=== PATIENT | male | born 1955 | race Caucasian/White ===

== ENCOUNTER → 2019-05-27 12:19 | Outpatient (CLI) | payer OTHER, SELFPAY ==
--- NOTE | 2019-05-27 | DI.MRI.S_ITS ---
PROCEDURE: MR THORACIC SPINE WO/W CON INDICATIONS: Syringomyelia TECHNIQUE: Noncontrast sagittal T1 spin echo and T2 fast spin echo, sagittal STIR, axial T1 and T2 fast spin echo through the thoracic spine. After the administration of contrast, axial and sagittal T1 spin echo with fat saturation through the thoracic spine. COMPARISON: [facility], MR, C-SPINE WITH&WITHOUT CONTRAST, 09/01/2011, 12:21. [facility], MR, T-SPINE WITH AND WITHOUT CONTR, 10/14/2008, 18:28. FINDINGS: Image quality: Excellent. Alignment and curvature: There is normal bony alignment. Marrow: Marrow is of normal overall signal. There is mild chronic T12 vertebral body compression fracture, unchanged from 10/14/2008. Spinal cord: Visualized spinal cord is of normal caliber, without abnormal enhancement. There is mild central canal dilation in the thoracic cord at level from top ofT5 to the bottom of T7, and again at the level T9-T10, approximally 1-2 mm in diameter. Compared with the last exam on 10/14/2008, there is no significant change. More promounce Lower cervical cord central canal dilation measures up to 4 mm in diameter, which is better visualized on the MRI of the cervical spine. Paraspinous soft tissues: No paravertebral masses or abnormal enhancement. Dependent atelectasis at lung bases. Miscellaneous: There is mild degenerative disc disease at T6 And T7, T7-T8, T8-T9, T9-T10, T12-L1 and L1-L2. Central canal and foramina appear widely patent at all scanned levels. IMPRESSION: 1. Mild syrinx in the thoracic cord as described, unchanged. No intramedullary mass or abnormal enhancement in the thoracic cord. 2. Mild degenerative disc disease in thoracic spine. No central canal or foraminal stenosis. 3. Mild chronic compression fracture of T12, unchanged. Dictated by: Gustavo Valiente M.D. on 05/27/2019 at 16:00 Approved by: Gustavo Valiente M.D. on 05/27/2019 at 18:04
--- NOTE | 2019-05-27 | DI.MRI.S_ITS ---
PROCEDURE: MR CERVICAL SPINE WO/W CON INDICATIONS: Syringomyelia TECHNIQUE: Noncontrast sagittal T1 spin echo and T2 fast spin echo, sagittal STIR, foraminal oblique sagittal T2 fast spin echo, axial gradient echo or T2 fast spin echo through the cervical spine. After the administration of contrast, axial and sagittal T1 spin echo with fat saturation through the cervical spine. COMPARISON: [facility], MR, C-SPINE WITH&WITHOUT CONTRAST, 10/14/2008, 18:06. [facility], MR, C-SPINE WITH&WITHOUT CONTRAST, 09/01/2011, 12:21. FINDINGS: Image quality: Excellent. Alignment and curvature: There is normal bony alignment. Marrow: Marrow is normal in overall signal, without suspicious enhancement. Spinal cord: There is focal dilation of the central canal and spinal cord at the level of C6 and C7, which is unchanged. There is no mass or abnormal enhancement. Visualized spinal cord has normal size and signal. No cerebellar tonsillar herniation. No abnormal intramedullary enhancement. Paraspinous soft tissues: No paravertebral masses or suspicious enhancement. C2-3: Normal appearance. C3-4: Preserved disc height. Mild disc desiccation. There is mild posterior disc bulge. Mild uncovertebral hypertrophy. The central canal is patent. Mild bilateral foraminal stenosis. C4-5: Preserved disc height. Mild disc desiccation. There is diffuse posterior disc bulge and uncovertebral hypertrophy more eccentric on the left. Mild bilateral facet arthropathy. The central canal is mildly narrowed. Moderate left and mild right foraminal stenosis. C5-6: Preserved disc height. Mild disc desiccation. There is diffuse posterior disc bulge and uncovertebral hypertrophy. Mild bilateral facet arthropathy. The central canal is mildly narrowed. Mild bilateral foraminal stenosis. C6-7: Mild loss of disc height and disc desiccation. There is diffuse posterior disc bulge. Enlarged left posterior lateral disc osteophyte is present. A small annular fissure is noted as well. The central canal is mildly narrowed. There is severe narrowing of the left lateral recess and likely nerve root impingement. Severe left and moderate right foraminal stenosis. C7-T1: Normal appearance. IMPRESSION: 1. 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 2. Multilevel degenerative disc disease and facet arthropathy as described. 3. Mild central canal stenosis at several levels. 4. Multilevel foraminal stenosis as described. 5. Severe narrowing of the left lateral recess at C6-C7 secondary to a large left posterior disc osteophyte with left C7 nerve root impingement. Dictated by: Gustavo Valiente M.D. on 05/27/2019 at 14:17 Approved by: Gustavo Valiente M.D. on 05/27/2019 at 14:35
== END ==
PROVIDERS: PCP Family Medicine; Visit Provider Family Medicine
DX: G95.0 Syringomyelia and syringobulbia (principal); M50.31 Other cervical disc degeneration, high cervical region; M47.812 Spondylosis without myelopathy or radiculopathy, cervical region; M48.02 Spinal stenosis, cervical region; M51.34 Other intervertebral disc degeneration, thoracic region; M48.54XS Collapsed vertebra, not elsewhere classified, thoracic region, sequela of fracture
CPT/HCPCS: 72156; 72157; A9579

== ENCOUNTER → 2019-07-11 07:10 | Outpatient (CLI) | payer OTHER, SELFPAY ==
--- NOTE | 2019-07-11 07:11 | DI.US.S_ITS ---
PROCEDURE: US CAROTID DOPPLER BI INDICATIONS: CERVICAL PULSATILE SENSATION TECHNIQUE: Color and pulse Doppler interrogation was performed of both carotid systems, with image documentation and velocity measurements. COMPARISON: None. FINDINGS: Stenosis calculations are based on SRU (S[employer] in Ultras[employer]) criteria. Right side: Brachial blood pressure: 130/87 mm Hg. Common carotid artery peak systolic velocity: 62 cm/sec. Internal carotid artery peak systolic velocity: 56 cm/sec. Internal carotid artery end diastolic velocity: 26 cm/sec. External carotid artery peak systolic velocity: 85 cm/sec. ICA/CCA peak systolic ratio: 0.9. Heredia scale imaging description: No appreciable calcific or soft plaque Percent internal carotid artery stenosis: None found. Vertebral artery: Not found. Left side: Brachial blood pressure: 136/89 mm Hg. Common carotid artery peak systolic velocity: 87 cm/sec. Internal carotid artery peak systolic velocity: 4 cm/sec. Internal carotid artery end diastolic velocity: 36 cm/sec. External carotid artery peak systolic velocity: 81 cm/sec. ICA/CCA peak systolic ratio: 0.7. Heredia scale imaging description: No appreciable calcific or soft plaque Percent internal carotid artery stenosis: None found. Vertebral artery: Flow direction is antegrade. IMPRESSION: No carotid stenosis identified, nonvisualization of vertebral arterial flow on the right, normal appearance on the left. This may indicate presence of a diminutive right vertebral artery below the threshold for accurate assessment by ultrasound. Dictated by: Leonardo Johnson M.D. on 07/11/2019 at 13:49 Approved by: Leonardo Johnson M.D. on 07/11/2019 at 13:51
== END ==
PROVIDERS: PCP Family Medicine; Referring Provider Physical Medicine & Rehabilitation; Visit Provider Physical Medicine & Rehabilitation
DX: G95.0 Syringomyelia and syringobulbia (principal)
CPT/HCPCS: 93880

== ENCOUNTER → 2023-02-05 17:43 | Outpatient (CLI) | payer MEDICARE, SELFPAY ==
--- NOTE | 2023-02-05 17:48 | DI.RAD.S_ITS ---
PROCEDURE: XR FOOT LT MIN 3V INDICATIONS: R/O fracture or accessory bone TECHNIQUE: Three views of the foot were acquired. COMPARISON: None. FINDINGS: Bones: No acute fractures or dislocations. No suspicious bony lesions. Mild hallux valgus. Mild degenerative changes at the 1st metatarsophalangeal joint and the interphalangeal joints of the toes. Soft tissues: No suspicious soft tissue calcification. IMPRESSION: 1. No acute osseous abnormality. If the symptoms persist, consider cross sectional imaging such as MRI or CT for further assessment. 2. Mild hallux valgus. 3. Mild osteoarthrosis. Approved by: Tramaine Roberts M.D. on 02/06/2023 at 10:35
--- NOTE | 2023-02-05 17:48 | DI.RAD.S_ITS ---
PROCEDURE: XR FOOT RT MIN 3V INDICATIONS: R/O fracture or accessory bone TECHNIQUE: 3 views of the foot were acquired. COMPARISON: None. FINDINGS: Bones: No acute fractures or dislocations. No suspicious bony lesions. Mild hallux valgus. Small plantar calcaneal enthesophyte. Mild degenerative changes are seen at the 1st metatarsophalangeal joint and at the interphalangeal joints of the toes. Soft tissues: No suspicious soft tissue calcification. IMPRESSION: 1. No acute osseous abnormality. If the symptoms persist, consider cross sectional imaging such as MRI or CT for further assessment. 2. Mild hallux valgus. 3. Mild osteoarthrosis. Approved by: Tramaine Roberts M.D. on 02/06/2023 at 10:34
== END ==
PROVIDERS: PCP Family Medicine; Referring Provider Podiatrist Foot & Ankle Surgery; Visit Provider Podiatrist Foot & Ankle Surgery
DX: M76.71 Peroneal tendinitis, right leg (principal); M20.11 Hallux valgus (acquired), right foot; M19.071 Primary osteoarthritis, right ankle and foot; M20.12 Hallux valgus (acquired), left foot; M19.072 Primary osteoarthritis, left ankle and foot
CPT/HCPCS: 73630